=== PATIENT | male | born 1985 | race Caucasian/White ===

== ENCOUNTER 2021-02-23 23:37 | Emergency (ER) | payer OTHER, SELFPAY ==
[2021-02-23 23:49] VITALS: BP 166/99; PULSE 102; RESP 18; TEMP 36.7; O2SAT 100; BMI 27.1
[2021-02-24] MEDS: Amoxicillin/Potassium Clav 875 MG TABLET PO (02:05)
[2021-02-24] MEDS: Ketorolac Tromethamine 60 MG/2 ML VIAL IM (02:05)
--- NOTE | 2021-02-24 04:25 | ED.DENTAL ---
HPI - Dental/Oral General Chief complaint: Dental/Oral Stated complaint: Dental pain Time Seen by Provider: 02/24/21 01:48 Source: patient Mode of arrival: ambulatory Limitations: no limitations History of Present Illness HPI Narrative: 35-year-old male presents with 1 day of left upper dental pain. MD Complaint: tooth pain Teeth map: 1. Onset (ago): day(s) (1) Duration: constant Severity: severe Severity scale (1-10): 10 Relieving factors: nothing Exacerbating factors: chewing, cold, heat and drinking fluids Context: history of dental caries and poor dental care Associated symptoms: gum swelling Treatment prior to arrival: none Related Data Previous Rx's Medication Instructions Recorded amoxicillin-pot clavulanate 1 tab PO Q12H 10 Days #20 tab 02/24/21 [Augmentin] ibuprofen 600 mg PO Q6H PRN #60 tab 02/24/21 Allergies Allergy/AdvReac Type Severity Reaction Status Date / Time No Known Allergies Allergy Verified 02/23/21 23:49 Review of Systems Review of Systems: Constitutional: No Fever, No Chills ENT/Mouth: No swallowing difficulty, no change in voice, positive dental pain, positive jaw pain, positive facial swelling Eyes: No Eye Pain, No Swelling Cardiovascular: No Chest Pain, No SOB Respiratory: No Cough, No Sputum, No Wheezing, No Smoke Exposure, No Dyspnea Gastrointestinal: No Nausea, No Vomiting, No Diarrhea Genitourinary: No Dysuria Musculoskeletal: No Myalgias Skin: No rash Neuro: No Weakness, No Numbness, No Headache Yes all other systems are reviewed and are negative [facility] Past Medical History Attestation statement: The following information was validated with the patient. Source: old records reviewed Social History Social History Advance Directives: No Advance Directives Information Provided: Yes Physical Exam Vital Signs: Vital Signs: Last Vital Signs Temp 98.1 F 02/23/21 23:49 Pulse 102 H 02/23/21 23:49 Resp 18 02/23/21 23:49 BP 166/99 H 02/23/21 23:49 Pulse Ox 100 02/23/21 23:49 Body Mass Index 27.1 Appearance: Alert. Oriented X3. Moderate distress. Eyes: Pupils equal, round and reactive to light. ENT: Pharynx normal. Tenderness to palpation to the left upper jaw, multiple visualized dental caries Neck: Normal inspection. Neck supple. CVS: Normal heart rate and rhythm. Pulses normal. Respiratory: No respiratory distress. Breath sounds normal. Abdomen: Soft and nontender. Skin: Skin warm and dry. Normal skin color. Normal skin turgor. Extremities: No lower extremity edema. Neuro: No motor deficit. No sensory deficit. Course Course Course Narrative: 35-year-old male presents with 1 day of dental pain. Will give IM Toradol and Augmentin. No drainable abscess noted. Patient will follow-up with his dentist. Patient verbalized understanding of and agrees to plan of care discharge home. MDM - Dental/Oral Differential Diagnosis Differential diagnosis: Likely dental caries and toothache Medical Records Attestation: I reviewed the patient's medical records. Discharge Plan Discharge Clinical Impression: Toothache, Dental caries Patient Disposition: Home, Self-Care Instructions: Dental Abscess (ED), Toothache (ED) Additional Instructions: You were evaluated for dental pain. Please follow-up with a dentist. Please take Augmentin as directed, this is an antibiotic. Complete the entire course of this medication. Please use Motrin 600 mg every 6-8 hours as needed for pain management. Thank you for choosing this emergency department for evaluation. Please follow-up with primary care physician as needed. Return to the emergency department for any new, concerning, or worsening symptoms. Prescriptions: New amoxicillin-pot clavulanate [Augmentin] 875-125 mg tablet 1 tab PO Q12H 10 Days Qty: 20 RF: 0 ibuprofen 600 mg tablet 600 mg PO Q6H PRN (Reason: pain) Qty: 60 RF: 0 Interventions: ED Discharge Assessment Last Done: 02/24/21 02:06 Discharge Date/Time: 02/24/21 02:06
== END 2021-02-24 02:06 | disposition home or self-care (01) ==
PROVIDERS: Emergency Provider Emergency Medicine Emergency Medical Services
DX: K02.9 Dental caries, unspecified (principal)
CPT/HCPCS: 96372; 99283; J1885

== ENCOUNTER 2025-09-04 08:24 | Outpatient (REF) | payer MEDICAID, SELFPAY ==
--- NOTE | ~2025-09-04 | CT_ITS ---
CLINICAL HISTORY: enlarged submandibular glnd, dusphagia Exam: CT soft tissue neck with IV contrast Comparison: None Findings: The nasopharynx, oropharynx, hypopharynx, larynx, trachea and included esophagus are unremarkable. Airway is patent. Normal epiglottis. The right submandibular gland is slightly larger when compared to the left, otherwise normal appearing salivary glands, no sialolithiasis. Thyroid gland demonstrates nothing unusual. Normal prevertebral soft tissue. Unremarkable vasculature. No lymphadenopathy. Multiple small cervical lymph nodes with benign morphology, less than 1 cm in short axis. Imaged orbital contents, paranasal sinuses, mastoid air cells clear. Included intracranial contents, lung apices demonstrate nothing unusual. No acute osseous abnormality. Impression: 1. No acute finding. No CT finding to account for dysphagia. 2. Mild size asymmetry of submandibular glands, slightly larger on the right, no hyperemia or focal lesion. This document has been electronically signed by: Essence Ortiz MD on 09/04/2025 16:26:00
--- OUTSIDE RECORDS SUMMARY | 2025-09-04 08:35 | XMS_ITS | Clinical Summary ---
Author Organization [employer] Address [address] [place] [address] Care Team Providers Care Mid Level Provider Name Role Phone Armando Rae MD Primary Care Provide r Allergies No known active allergies Medications No known medications Active Problems Problem Noted Date Diagnosed Date Overweight (BMI 25.0-29.9) 07/14/2025 Assessment & Plan (07/14/2025 3:04 PM EDT): Patient has been counseled and educated about diet and exercise. Personal goal of weight loss discussed Pt told by Dentist that he has significant dental bone loss and asked him to inquire if he was pre-diabetic. Pt has a strong fam hx of DM Plan: Obtain FBG Dysphagia 07/14/2025 Assessment & Plan (07/14/2025 3:01 PM EDT): Dysphagia, unspecified type: - Dysphagia is intermittent and triggered by smoking, with no associated weight loss, fever, or night sweats. No concerning findings on physical examination. Differential diagnosis includes possible esophageal or pharyngeal pathology. - Ordered barium swallow to evaluate for structural or functional abnormalities of the pharynx and esophagus. Ordered CT scan of the neck to assess for soft tissue, glandular, or lymph node pathology. Ordered fasting blood glucose test to evaluate for possible prediabetes. Advised to avoid smoking if it triggers symptoms. Will review results and follow up in three months or sooner if symptoms worsen. Enlargement of submandibular gland 07/14/2025 Assessment & Plan (07/14/2025 3:02 PM EDT): Patient with c/o dysphagia On exam Symmetric mild enlargement of submandibular glands Etiology? possibly related to viral illness or reactive process. No palpable masses on neck or other concerning findings. - Ordered CT scan of the neck to further evaluate glandular enlargement and rule out other pathology given the fact that patient is a smoker and is c/o dysphagia Smoker 07/14/2025 Assessment & Plan (07/14/2025 3:03 PM EDT): Reports cutting down Impacted cerumen of left ear 01/27/2025 Assessment & Plan (01/27/2025 1:59 PM EDT): Pt's exam indicative of this Plan: Debrox x 4 days 1 week follow up with RN for ear lavage F/u with me for a New Patient appointment Encounters Date Type Department Care Team Description 07/31/[address] [address] Armando Rae MD october07/28/2025 9:00 AM EDT Office Visit [facility] [address] [place] [phone] Bonny Painter 07/22/2025 Travel 07/22/2025 Telephone [facility] [address] [place] [phone] Cricket Greenberg, TREVORS suture removal only; returning call to reschedule appt 07/21/2025 9:30 AM EDT Office Visit [facility] [address] [place] [phone] Cricket Greenberg, BDS Abscess, alveolar (Primary Dx) 07/14/2025 2:30 PM EDT Office Visit [address] [address] Armando Rae MD Dysphagia, unspecified type (Primary Dx); Enlargement of submandibular gland; Smoker; Overweight (BMI 25.0-29.9); Dietary counseling; Exercise counseling 07/14/2025 Travel 07/13/[address] [address] Armando Rae MD chart prep 07/09/2025 1:00 PM EDT Office Visit [facility] [address] [place] [address] Bonny Painter 07/07/2025 Patient Outreach [facility] [address] [place], [place] [phone] Armando Rae MD Pre-visit Planning (Pre-visit planning - LVM ) from Last 3 Months Immunizations Immunization Administration Dates Next Due TD (adult), 2 Lf tetanus tox oid, preservative free, adsorbed 12/29/2021 Td (adult), 5 Lf tetanus tox oid, preservative free, adsorbed 05/17/2016 Tdap 04/10/2013 Social History Tobacco Use Types Packs/Day Years Used Date Smoking Tobacco: Never Passive Smoke Exposure: Never Smokeless Tobacco: Never Tobacco Cessation:Counseling Given: Not Answered Alcohol Use Standard Drinks/Week Comments Never 0 (1 standard drink = 0.6 oz pur e alcohol) Depression Answer Date Recorded Patient Health Questionnaire-9 Score 0 07/14/2025 Patient Health Questionnaire-9 Score 0 07/14/2025 Last PHQ-9: Questionnaire Data Not on file 0 07/14/2025 Housing Stability Answer Date Recorded What is your housing situation today? I have suleiman lanza 07/14/[address] you li ve. Do you have problems with any of the following? None of the above 07/14/2025 Food Insecurity Answer Date Recorded Within the past 12 months, y ou worried that your food would run out before you got money to buy more: Never True 07/14/2025 Within the past 12 months,th e food you bought just didn't last and you didn't have enough money to get more: Never True 07/2025 Transportation Answer Date Recorded In the past 12 months, has l ack of transportation kept you from medical appts, meetings, work or from getting things needed for daily living? No 07/14/2025 Utilities Answer Date Recorded In the past 12 months, has t he electric, gas, oil or water company threatened to shut off services in your home? No 07/14/2025 Depression Answer Date Recorded Patient Health Questionnaire-2 Score 0 07/14/2025 Internet Access Answer Date Recorded Internet Access Q1 No 07/14/2025 Internet Access Q2 I do not want or need it 07/2025 Sex and Gender Information Value Date Recorded Sex Assigned at Male 09/04/2022 10:38 AM EDT Legal Sex Male 10:38 AM EDT Gender Identity Male 09/04/2022 10:38 AM EDT Sexual Orientation Straight 09/04/2022 10 :38 AM EDT Last Filed Vital Signs Vital Sign Reading Time Taken Comments Blood Pressure 144/84 07/28/2025 9:09 AM EDT Pulse 58 07/28/2025 9:09 AM EDT Temperature 36.4 C (97.6 F) 07/14/2025 2:39 PM EDT Respiratory Rate 25 07/14/2025 2:39 PM EDT Oxygen Saturation 99% 07/14/2025 2:39 PM EDT Inhaled Oxygen Concentration - - Weight 93 kg (205 lb) 07/14/2025 2:39 PM EDT Height 182.9 cm (6') 07/14/2025 2:39 PM EDT Body Mass Index 27.8 07/14/2025 2:39 PM EDT Plan of Treatment Upcoming Encounters Date Type Department Care Team (Late st Contact Info) Description 10/22/2025 3:00 PM EST Office Visit [facility] [address] [place] [address] Armando Rae MD [address] [place] [address] Health Maintenance Due Date Last Done Comments HIV Screening 1985 Lipid Panel 1985 Family Planning (PISQ) 2000 HPV Vaccines (1 - Male 3-dos e series) 2000 Hepatitis C Screening 2003 Hepatitis B Vaccines (1 of 3 - 19+ 3-dose series) 2004 COVID-19 Vaccine ( - 2024-2 6 season) 2025 03/12/2021, 02/23/2021 Influenza Vaccine (#1) 2025 Dental Oral Exam 01/07/2026 07/09/2025, 05/03/2021 Dental Prophylaxis 01/26/2026 07/28/2025, 05/03/2021 Dental X-Ray: Bitewings 07/10/2026 07/09/20 25, 05/03/2021, 03/29/2021 Alcohol/Substance Use Screening 07/14/2026 07/14/2025 Depression Screening 07/14/2026 07/14/2025, 07/14/2025 Disability Screening 07/14/2026 07/14/2025 SDOH Screening 07/14/2026 07/14/2025 Tobacco Screening 07/28/2026 07/28/2025 Dental X-Ray: Full Mouth 07/10/2028 025, 05/03/2021 DTaP/Tdap/Td Vaccines (4 - T d or Tdap) 12/29/2031 12/29/2021, 05/17/2016, 04/10/2013 Zoster Vaccines (1 of 2) 2035 RSV Patients and Patients Aged 60 years or older (1 - 1-dose 75+ series) 2060 HIB Vaccines Aged Out No longer eligi ble based on patient's age to complete this topic Hepatitis A Vaccines Aged Out No long er eligible based on patient's age to complete this topic IPV Vaccines Aged Out No longer eligi ble based on patient's age to complete this topic Meningococcal B Vaccine Aged Out No l onger eligible based on patient's age to complete this topic Meningococcal Vaccine Aged Out No annemarie ferny eligible based on patient's age to complete this topic Pneumococcal Vaccine: Pediatrics (0 to 5 Years) and At-Risk Patients (6 to 49) Years Aged Out No longer eligible b ased on patient's age to complete this topic RSV under 20 months Aged Out No longe r eligible based on patient's age to complete this topic Rotavirus Vaccines Aged Out No longer eligible based on patient's age to complete this topic Procedures Procedure Name Priority Date/Time Associated Diagnosis Comments CASE PRESENTATION, DETAILED AND EXTENSIVE TREATMENT PLANNING Routine 07/28/2025 9:00 AM EDT PROPHYLAXIS - ADULT Routine 07/28/2025 9 :00 AM EDT CASE PRESENTATION, DETAILED AND EXTENSIVE TREATMENT PLANNING Routine 07/21/2025 9:30 AM EDT 24 EXTRACTION, ERUPTED TOOTH REQ REMOVAL OF BONE AND/OR SECTIONING OF TOOTH Routine 07/21/2025 9:30 AM EDT 2 EXTRACTION, ERUPTED TOOTH REQ REMOVAL OF BONE AND/OR SECTIONING OF TOOTH Routine 07/21/2025 9:30 AM EDT COMPREHENSIVE ORAL EVALUATION - NEW OR ESTABLISHED PATIENT Routine 07/09/2025 1:00 PM EDT INTRAORAL - COMPLETE SERIES OF RADIOGRAPHIC IMAGES Routine 07/09/2025 1:00 PM EDT CASE PRESENTATION, DETAILED AND EXTENSIVE TREATMENT PLANNING Routine 07/09/2025 1:00 PM EDT 31 ROOT CANAL Routine 07/09/2025 12:00 AM EDT from Last [address] [facility] C[facility] ADULT Care Teams Mid Level Provider Relationship Specialty Start Date End Date Armando Rea MD [address] [place] [address] [place] [address] PCP - General Internal Medicine 01/27/25
--- OUTSIDE RECORDS SUMMARY | 2025-09-04 08:36 | XMS_ITS | Encounter Summary ---
Author Organization [employer] Address [address] [place] [address] [address] [place] [address] Care Team Providers Care Day Worker Name Role Phone Alicia Parra MD Primary Care Provider [phone] Armando Rae MD Primary Care Provide r Encounter Details Date Type Department Care Team (Latest Contact Info) Description 05/03/2021 Abstract [facility] Dental, Provider, DDS Social History Tobacco Use Types Packs/Day Years Used Date Smoking Tobacco: Never Assessed Sex and Gender Information Value Date Recorded Sex Assigned at Male 09/04/2022 10:38 AM EDT Legal Sex Male 10:38 AM EDT Gender Identity Male 09/04/2022 10:38 AM EDT Sexual Orientation Straight 09/04/2022 10 :38 AM EDT documented as of this encounter Plan of Treatment Upcoming Encounters Date Type Department Care Team (Late st Contact Info) Description 10/22/2025 3:00 PM EST Office Visit [facility] [address] [place] [address] Armando Rae MD [address] [place] [address] documented as of this encounter Visit Diagnoses Not on filedocumented in this encounter Care Teams Day Worker Relationship Specialty Start Date End Date Alicia Parra MD [address] [place] [address] PCP - General Internal Medicine 07/25/21 01/26/25 Armando Rae MD [address] [place] [address] PCP - General Internal Medicine 01/27/25 documented as of this encounter
--- OUTSIDE RECORDS SUMMARY | 2025-09-04 08:36 | XMS_ITS | Encounter Summary ---
Author Organization [employer] Address [address] [place] [address] Care Team Providers Care Improvement Lead Name Role Phone Armando Rae MD Primary Care Provide r Reason for Visit * Reason Onset Date Comments suture removal only 07/22/2025 returning call to reschedule appt 07/22/2025 Encounter Details Date Type Department Care Team (Late st Contact Info) Description 07/22/2025 Telephone [facility] [address] [place], [place] [phone] Cricket Greenberg, BDS [address] [place], [place] [phone] suture removal only; returning call to reschedule appt Social History Tobacco Use Types Packs/Day Years Used Date Smoking Tobacco: Never Passive Smoke Exposure: Never Smokeless Tobacco: Never Alcohol Use Standard Drinks/Week Comments Never 0 (1 standard drink = 0.6 oz pur e alcohol) Depression Answer Date Recorded Patient Health Questionnaire-9 Score 0 07/14/2025 Patient Health Questionnaire-9 Score 0 07/14/2025 Last PHQ-9: Questionnaire Data Not on file 0 07/14/2025 Housing Stability Answer Date Recorded What is your housing situation today? I have suleiman pool 07/14/[address] you li [...] AM EDT documented as of this encounter Miscellaneous Notes * Telephone Encounter - Asya Murphy - 07/22/2025 12:29 PM EDT Patient returned call placed today to reschedule appt due to provider leaving early. Please call patient from 2:30 on as she is in school * Telephone Encounter - Asya Murphy - 07/22/2025 10:26 AM EDT Patient wants to make sure that thee otherr extraction does not happen today. He is still in pain and wants to continue on antibiotics and be schedueld on a different day for extraction. It was explained to patient that the appt fo today is suture removal. However if conversation comes up about exraction he has the right to decline the treatment for today. Patient understood. documented in this encounter Plan of Treatment Upcoming Encounters Date Type Department Care Team (Late st Contact Info) Description 10/22/2025 3:00 PM EST Office Visit [facility] [address] [place] [phone] Armando Rae MD [address] [place] [address] documented as of this encounter Visit Diagnoses Not on filedocumented in this encounter Additional Health Concerns Assessment Noted Time PHQ-9 Depression Total Score: 0 07/14/20 25 2:42 PM EDT documented as of this encounter Care Teams Improvement Lead Relationship Specialty Start Date End Date Armando Rae MD [address] [place] [address] PCP - General Internal Medicine 01/27/25 documented as of this encounter
[2025-09-04] MEDS: iohexoL 350 MG/ML 100 ML INFUS..BTL IV (09:20)
== END 2025-09-04 08:25 | disposition home or self-care (01) ==
LOC: HO.CT 08:24
PROVIDERS: Visit Provider Internal Medicine
DX: R13.10 Dysphagia, unspecified (principal); K11.1 Hypertrophy of salivary gland; F17.200 Nicotine dependence, unspecified, uncomplicated
CPT/HCPCS: 70491; Q9967

== ENCOUNTER → 2025-09-04 08:26 | Outpatient (BNV) | payer MEDICAID, SELFPAY | PROVIDERS: Visit Provider Radiology Diagnostic Radiology | DX: R22.1 Localized swelling, mass and lump, neck (principal); R13.10 Dysphagia, unspecified | CPT/HCPCS: 70491 ==

== ENCOUNTER 2025-10-20 09:18 | Outpatient (REF) | payer MEDICAID, SELFPAY ==
[2025-10-20 12:02] LABS: Alanine Aminotransferase 81 U/L (0-40); Albumin Level 4.6 g/dL (3.5-5.0); Alkaline Phosphatase 73 U/L (39-117); Anion Gap 12 (12-20); Aspartate Amino Transferase 43 U/L (5-37); Blood Urea Nitrogen 12 mg/dL (9-16); Calcium 9.6 mg/dL (8.4-10.2); Carbon Dioxide 27 mmol/L (22-29); Chloride 104 mmol/L (96-108); Cholesterol 270 mg/dL (<200); Estimated Glomerular Filt Rate > 60; HDL Cholesterol 60 mg/dL (>40); Potassium 4.2 mmol/L (3.3-5.1); Sodium 139 mmol/L (135-145); Total Protein 7.9 g/dL (6.5-8.0); Triglycerides 132 mg/dL (<150)
== END 2025-10-20 09:19 | disposition home or self-care (01) ==
LOC: HO.HHCL 09:18
PROVIDERS: PCP Internal Medicine; Visit Provider Internal Medicine
DX: E66.3 Overweight (principal); F17.200 Nicotine dependence, unspecified, uncomplicated
CPT/HCPCS: 36415; 80053; 80061